=== PATIENT | female | born 1975 | race Caucasian/White ===

== ENCOUNTER 2017-04-01 22:08 | Inpatient (IN) | payer SELFPAY ==
[~2017-04-01] VITALS: Ht 165.1 cm; Wt 75.9 kg
[2017-04-01 22:37] LABS: BASO # 0.1 x10^3/uL (0.0-0.2); BASO % 1 % (0-3); EOS % 1 % (0-3); HEMATOCRIT 38.9 % (36.0-47.0); HEMOGLOBIN 13.6 g/dL (12.0-15.5); LYMPH # 2.6 x10^3/uL (1.0-4.8); LYMPH % 33 % (24-48); MEAN CORPUSCULAR HEMOGLOBIN 34 pg (25-35); MEAN CORPUSCULAR HGB CONC 35 g/dL (31-37); MEAN CORPUSCULAR VOLUME 96 fL (79-100); MONO % 7 % (0-9); NEUT % 59 % (31-73); PLATELET COUNT 261 x10^3/uL (140-400); RED BLOOD COUNT 4.06 x10^6/uL (3.50-5.40); RED CELL DISTRIBUTION WIDTH 12.9 % (11.5-14.5); WHITE BLOOD COUNT 7.9 x10^3/uL (4.0-11.0)
[2017-04-01 22:48] LABS: BILIRUBIN,URINE NEGATIVE (NEG); GLUCOSE,URINE NEGATIVE (NEG); NITRITE,URINE NEGATIVE (NEG); PH,URINE 6.5; PROTEIN,URINE NEGATIVE (NEG-TRACE)
[2017-04-01 22:49] LABS: CALCIUM 9.6 mg/dL (8.5-10.1); CREATININE 0.8 mg/dL (0.6-1.0)
[2017-04-01 22:50] LABS: POTASSIUM 2.4 mmol/L (3.5-5.1)
[2017-04-01 22:53] LABS: BARBITURATES NEG (NEG); BENZODIAZEPINES NEG (NEG); CANNABINOIDS NEG (NEG); COCAINE NEG (NEG); METHADONE NEG (NEG); OPIATES NEG (NEG); PHENCYCLIDINE NEG (NEG)
[2017-04-01 22:55] LABS: BACTERIA,URINE FEW /HPF (0-FEW); RBC,URINE 0 /HPF (0-2); SQUAMOUS EPITHELIAL CELL,UR MOD /LPF
[2017-04-01] MEDS ORDERED: POTASSIUM CHLORIDE 20 MEQ/15 ML ORAL LIQUID. PO ONE (23:30)
[2017-04-01] MEDS ORDERED: ONDANSETRON PF 4 MG/2 ML VIAL. IV PRN ×2 (23:30→23:51)
[2017-04-01] MEDS ORDERED: ACETAMINOPHEN 325 MG TABLET. PO PRN (23:30)
[2017-04-01] MEDS ORDERED: POTASSIUM CL 30MEQ D5-0.45NACL 1,000 ML IV ONE (23:30)
[2017-04-02] MEDS ORDERED: LABETALOL 20 MG/4 ML DISP.SYRIN. IVP PRN
[2017-04-02] MEDS ORDERED: [UNRECOGNIZED DRUG - OTHER] IV ONE ×5
[2017-04-02] MEDS ORDERED: FOLIC ACID IV ONE ×5
[2017-04-02] MEDS ORDERED: NICOTINE 21MG PATCH. TD PRN
[2017-04-02] MEDS ORDERED: MULTIVIT INFUSN ADULT K IV ONE ×5
[2017-04-02] MEDS ORDERED: THIAMINE IV ONE ×5
[2017-04-02] MEDS ORDERED: POTASSIUM CHLORIDE 20 MEQ TABLET.ER. PO ONE (00:15)
--- NOTE | 2017-04-02 00:15 | PDOC1 ---
History and Physical Date of Admission Date of Admission DATE: 04/02/17 TIME: 00:07 Identification/Chief Complaint Chief Complaint abd pain, diarrhea, passed out Problems: Source Source: Caregiver, Chart review, Patient History of Present Illness History of Present Illness 41 y.o female, heavy alcoholic, pint every day,was at [employer] today, riding the water ride and passed out apparently, No injuries, Admitted bec of etoh hx, critical hypokalemia 2.4 and a systolic BP of over 200s. Claims only on 3 meds at home,antidepressant, prilosec and 1 unrecalled med, Claims BP usually runs low. No PCP On ROS, lots of positive like intermittent bloody diarrhea, was supposed to have cscope done but lost interest/lost insurance and is now SP. Claims hx IBS, no weight change, claims hx hematemesis and blood from urine? vagina? buts he is worried bec she has had a hysterrectomy already, Abd pain, no radiation , non concerning, hx 19 lap sxs thru her umbilicus she claims, hungry and wants food, Asks me about liver cirrhosis. Past Medical History GI: Diverticulosis, GERD, GI bleed, Irritable bowel disease, Peptic Ulcer disease, Other (bloody BM) Hepatobiliary: No pertinent hx Psych: No pertinent hx Musculoskeletal: low back pain Rheumatologic: No pertinent hx Infectious disease: No pertinent hx ENT: No pertinent hx Renal/: No pertinent hx Endocrine: No pertinent hx Dermatology: No pertinent hx Past Surgical History Past Surgical History: , Tonsillectomy, Hysterectomy, Other (19 lap sx thru umbilicus) Family History Family History: High Cholestrol, Hypertension Social History Smoke: 1 pack per day ALCOHOL: heavy Drugs: None Current Problem List Problem List Problems Medical Problems: (1) Hypokalemia Status: Acute Problems: Current Medications Current Medications Current Medications Potassium Chloride (KCl Oral Soln) 40 meq 1X ONCE PO Last administered on 04/01t 23:16; Start 04/01/17 at 23:30; Stop 04/01/17 at 23:31; Status DC Potassium Chloride/Dextrose/ Sod Cl 1,000 ml @ 75 mls/hr 1X ONCE IV ; Start at 23:30; Stop 04/02/17 at 12:49; Status Cancel Multivitamins 10 ml/Folic Acid 1 mg/Thiamine HCl 100 mg/Potassium Chloride 40 meq/ Dextrose/Sodium Chloride 1,031.2 ml @ 125 mls/ hr 1X ONCE IV Last administered on 04/01/17t 23:34; Start 04/02/17 at 00:00; Stop 04/02/17 at 08:14 Ondansetron HCl (Zofran) 4 mg PRN Q8HRS PRN IV NAUSEA/VOMITING; Start 04/01/17 at 23:30; Stop 04/01/17 at 23:53; Status DC Acetaminophen (Tylenol) 650 mg PRN Q4HRS PRN PO FEVER; Start 04/01/17 at 23:30 ; Stop 04/02/17 at 23:29 Multivitamins 10 ml/Thiamine HCl 100 mg/Folic Acid 1 mg/Sodium Chloride 1,011.2 ml @ 100 mls/ hr DAILY IV ; Start 04/02/17 at 09:00; Stop 04/07/17 at 08:59 Chlordiazepoxide (Librium) 25 mg Q6H PO ; Start 04/02/17 at 00:00; Stop at 06:01 Ondansetron HCl (Zofran) 4 mg PRN Q6HRS PRN IV NAUSEA/VOMITING; Start 04/01/17 at 23:51 Potassium Chloride (Klor-Con) 40 meq 1X ONCE PO ; Start 04/02/17 at 00:15; Stop 04/02/17 at 00:16 Labetalol HCl (Normodyne) 10 mg PRN Q2HR PRN IVP 160/100; Start 04/02/17 at 00: 00 Allergies Allergies: Coded Allergies: Penicillins (Verified Allergy, Intermediate, 04/01/17) codeine (Verified Allergy, Intermediate, 04/01/17) propoxyphene (Verified Allergy, Intermediate, 04/01/17) ROS General: No: Chills, Night Sweats, Fatigue, Malaise, Appetite, Other PSYCHOLOGICAL ROS: YES: Depression Eyes: No Blurry vision, No Decreased vision, No Double vision, No Dry eyes, No Excessive tearing, No Eye Pain, No Itchy Eyes, No Loss of vision, No Photophobia , No Scotomata, No Uses contacts, No Uses glasses, No Other HEENT: No: Heacaches, Visual Changes, Hearing change, Nasal congestion, Nasal discharge, Oral lesions, Sinus pain, Sore Throat, Epistaxis, Sneezing, Snoring, Tinnitus, Vertigo, Vocal changes, Other ALLERGY AND IMMUNOLOGY: No: Hives, Insect Bite Sensitivity, Itchy/Watery Eyes, Nasal Congestion, Post Nasal Drip, Seasonal Allergies, Other Hematological and Lymphatic: YES: Bleeding Problems, No: Blood Clots, Blood Transfusions, Brusing, Night Sweats, Pallor, Swollen Lymph Nodes, Other Breast: No New/Changing Breast Lumps, No Nipple changes, No Nipple discharge, No Other Respiratory: No: Cough, Hemoptysis, Orthopnea, Pleuritic Pain, Shortness of breath, SOB with excertion, Sputum Changes, Stridor, Tachypnea, Wheezing, Other Cardiovascular: No Chest Pain, No Palpitations, No Orthopnea, No Paroxysmal Noc. Dyspnea, No Edema, No Lt Headedness, No Other Gastrointestinal: Yes Nausea, Yes Vomiting, Yes Abdominal Pain, Yes Diarrhea, Yes Hematochezia, Yes Other (hematemesis) Genitourinary: YES Hematuria, YES Other Musculoskeletal: No Gait Disturbance, No Joint Pain, No Joint Stiffness, No Joint Swelling, No Muscle Pain, No Muscular Weakness, No Pain In:, No Swelling In:, No Other Neurological: No Behavorial Changes, No Bowel/Bladder ControlChng, No Confusion , No Dizziness, No Gait Disturbance, No Headaches, No Impaired Coord/balance, No Memory Loss, No Numbness/Tingling, No Seizures, No Speech Problems, No Tremors, No Visual Changes, No Weakness, No Other Skin: No Dry Skin, No Eczema, No Hair Changes, No Lumps, No Mole Changes, No Mottling, No Nail Changes, No Pruritus, No Rash, No Skin Lesion Changes, No Other, No Acne Physical Exam General: Alert, Oriented X3, Cooperative, No acute distress HEENT: Atraumatic, PERRLA, EOMI Lungs: Clear to auscultation, Normal air movement Heart: S1S2, RRR, no thrills, no rubs, no gallops Cardiovascular: S1, S2 Breasts: Normal, Rt breast nml w/o mass, Lt breast nml w/o mass, Nipples normal Abdomen: Normal bowel sounds, Soft, No tenderness, No hepatosplenomegaly, No masses Rectal Exam: not examined PELVIC: Nml ext genitalia Extremities: No clubbing, No cyanosis, No edema, Normal pulses, No tenderness/ swelling Skin: No rashes, No breakdown, No significant lesion Neuro: Normal gait, Normal speech, Strength at 5/5 X4 ext, Normal tone, Sensation intact, Cranial nerves 3-12 NL, Reflexes 2+ Psych/Mental Status: Mental status NL, Mood NL Vitals Vitals Vital Signs Date Time Temp Pulse Resp B/P (MAP) Pulse Ox O2 Delivery O2 Flow Rate FiO2 04/01/17 23:36 80 22 194/93 (126) 100 04/01/17 23:31 Room Air 04/01/17 22:08 97.5 97.5 Labs Labs Laboratory Tests Test 04/01/17 22:23 04/01/17 22:41 White Blood Count 7.9 x10^3/uL (4.0-11.0) Red Blood Count 4.06 x10^6/uL (3.50-5.40) Hemoglobin 13.6 g/dL (12.0-15.5) Hematocrit 38.9 % (36.0-47.0) Mean Corpuscular Volume 96 fL (79-100) Mean Corpuscular Hemoglobin 34 pg (25-35) Mean Corpuscular Hemoglobin Concent 35 g/dL (31-37) Red Cell Distribution Width 12.9 % (11.5-14.5) Platelet Count 261 x10^3/uL (140-400) Neutrophils (%) (Auto) 59 % (31-73) Lymphocytes (%) (Auto) 33 % (24-48) Monocytes (%) (Auto) 7 % (0-9) Eosinophils (%) (Auto) 1 % (0-3) Basophils (%) (Auto) 1 % (0-3) Neutrophils # (Auto) 4.6 x10^3uL (1.8-7.7) Lymphocytes # (Auto) 2.6 x10^3/uL (1.0-4.8) Monocytes # (Auto) 0.6 x10^3/uL (0.0-1.1) Eosinophils # (Auto) 0.1 x10^3/uL (0.0-0.7) Basophils # (Auto) 0.1 x10^3/uL (0.0-0.2) Sodium Level 143 mmol/L (136-145) Potassium Level 2.4 mmol/L (3.5-5.1) Chloride Level 103 mmol/L (98-107) Carbon Dioxide Level 28 mmol/L (21-32) Anion Gap 12 (6-14) Blood Urea Nitrogen 15 mg/dL (7-20) Creatinine 0.8 mg/dL (0.6-1.0) Estimated GFR (Cockcroft-Gault) 79.0 Glucose Level 128 mg/dL (70-99) Calcium Level 9.6 mg/dL (8.5-10.1) Magnesium Level 1.8 mg/dL (1.8-2.4) Ethyl Alcohol Level < 10 mg/dL (0-10) Urine Collection Type Unknown Urine Color Estefanía Urine Clarity Clear Urine pH 6.5 Urine Specific [place] 1.025 Urine Protein Negative mg/dL (NEG-TRACE) Urine Glucose (UA) Negative mg/dL (NEG) Urine Ketones (Stick) 15 mg/dL (NEG) Urine Blood Negative (NEG) Urine Nitrite Negative (NEG) Urine Bilirubin Negative (NEG) Urine Urobilinogen Dipstick 1.0 mg/dL (0.2 mg/dL) Urine Leukocyte Esterase Small (NEG) Urine RBC 0 /HPF (0-2) Urine WBC 5-10 /HPF (0-4) Urine Squamous Epithelial Cells Mod /LPF Urine Amorphous Sediment Present /HPF Urine Bacteria Few /HPF (0-FEW) Urine Mucus Mod /LPF Urine Opiates Screen Neg (NEG) Urine Methadone Screen Neg (NEG) Urine Barbiturates Neg (NEG) Urine Phencyclidine Screen Neg (NEG) Urine Amphetamine/Methamphetamine Pos (NEG) Urine Benzodiazepines Screen Neg (NEG) Urine Cocaine Screen Neg (NEG) Urine Cannabinoids Screen Neg (NEG) Urine Ethyl Alcohol Pos (NEG) Laboratory Tests Test 04/01/17 22:23 04/01/17 22:41 White Blood Count 7.9 x10^3/uL (4.0-11.0) Red Blood Count 4.06 x10^6/uL (3.50-5.40) Hemoglobin 13.6 g/dL (12.0-15.5) Hematocrit 38.9 % (36.0-47.0) Mean Corpuscular Volume 96 fL (79-100) Mean Corpuscular Hemoglobin 34 pg (25-35) Mean Corpuscular Hemoglobin Concent 35 g/dL (31-37) Red Cell Distribution Width 12.9 % (11.5-14.5) Platelet Count 261 x10^3/uL (140-400) Neutrophils (%) (Auto) 59 % (31-73) Lymphocytes (%) (Auto) 33 % (24-48) Monocytes (%) (Auto) 7 % (0-9) Eosinophils (%) (Auto) 1 % (0-3) Basophils (%) (Auto) 1 % (0-3) Neutrophils # (Auto) 4.6 x10^3uL (1.8-7.7) Lymphocytes # (Auto) 2.6 x10^3/uL (1.0-4.8) Monocytes # (Auto) 0.6 x10^3/uL (0.0-1.1) Eosinophils # (Auto) 0.1 x10^3/uL (0.0-0.7) Basophils # (Auto) 0.1 x10^3/uL (0.0-0.2) Sodium Level 143 mmol/L (136-145) Potassium Level 2.4 mmol/L (3.5-5.1) Chloride Level 103 mmol/L (98-107) Carbon Dioxide Level 28 mmol/L (21-32) Anion Gap 12 (6-14) Blood Urea Nitrogen 15 mg/dL (7-20) Creatinine 0.8 mg/dL (0.6-1.0) Estimated GFR (Cockcroft-Gault) 79.0 Glucose Level 128 mg/dL (70-99) Calcium Level 9.6 mg/dL (8.5-10.1) Magnesium Level 1.8 mg/dL (1.8-2.4) Ethyl Alcohol Level < 10 mg/dL (0-10) Urine Collection Type Unknown Urine Color Estefanía Urine Clarity Clear Urine pH 6.5 Urine Specific [place] 1.025 Urine Protein Negative mg/dL (NEG-TRACE) Urine Glucose (UA) Negative mg/dL (NEG) Urine Ketones (Stick) 15 mg/dL (NEG) Urine Blood Negative (NEG) Urine Nitrite Negative (NEG) Urine Bilirubin Negative (NEG) Urine Urobilinogen Dipstick 1.0 mg/dL (0.2 mg/dL) Urine Leukocyte Esterase Small (NEG) Urine RBC 0 /HPF (0-2) Urine WBC 5-10 /HPF (0-4) Urine Squamous Epithelial Cells Mod /LPF Urine Amorphous Sediment Present /HPF Urine Bacteria Few /HPF (0-FEW) Urine Mucus Mod /LPF Urine Opiates Screen Neg (NEG) Urine Methadone Screen Neg (NEG) Urine Barbiturates Neg (NEG) Urine Phencyclidine Screen Neg (NEG) Urine Amphetamine/Methamphetamine Pos (NEG) Urine Benzodiazepines Screen Neg (NEG) Urine Cocaine Screen Neg (NEG) Urine Cannabinoids Screen Neg (NEG) Urine Ethyl Alcohol Pos (NEG) VTE Prophylaxis Ordered VTE Prophylaxis Devices: Contraindicated VTE Pharmacological Prophylaxi: Contraindicated Assessment/Plan Assessment/Plan 1. Critical hypokalemia from GI loss 2. Diarrhea with episodes of bloody BM - staretd weeks ago, intermitten 3. Hx IBS per patient 4. Hematemesis hx in this alcoholic 5. HEavy etoh drinker 6. MAlignant HTN POA - SBP 200s 7. Depression NOS 8. GERD 9,. Hx diverticulosis PLAn: Admit 2 mN Labetolol prn NEed to lower BP in 24 hrs GI consult GEt ESR Stool for blood and specimen to lab Imodium prn Resume home meds PPI Banana bag CIWA REplace K - recheck K kelsey Check mag Ok for pO diet Counselled on her drinking Seen at ER level Dw ER NO need for PT, gait seems to be steady Can consult SW for AAA referral TASNEEM VILCHIS MD Apr 02, 2017 00:15
[2017-04-02] MEDS: chlordiazePOXIDE HCL 25 MG CAPSULE PO SCH ×4 (00:17→17:06)
--- NOTE | 2017-04-02 00:29 | ACF ---
Admission Forms Criteria HYPONATREMIA; HYPERNATREMIA; HYPOKALEMIA; HYPERKALEMIA; HYPOCALCEMIA; HYPERCALCEMIA Clinical Indications for Inpatient Care (Place 'X' for any and all applicable criteria): Ongoing inpatient care may be indicated for ANY ONE of the following [G](1)(2)(3 )(5): [ ]I. Hyponatremia with ANY ONE of the following: [ ]a) Sodium less than 130 mEq/L (mmol/L) (new) (6)(22) [ ]b) Sodium less than 135 mEq/L (mmol/L) with ANY ONE of the following: [ ]i) Severe medical etiology requiring inpatient management (eg, heart failure, hypovolemia) [ ]ii) Altered mental status [ ]iii) Seizures [ ]II. Hypernatremia with ANY ONE of the following: [ ]a) Sodium greater than 155 mEq/L (mmol/L) [ ]b) Sodium greater than 150 mEq/L (mmol/L) with ANY ONE of the following: [ ] i) Altered mental status [ ]ii) Seizures [ ]iii) Severe medical etiology (eg, hypovolemia, diabetes insipidus) [ ]iv) Severe weakness [ ]v) Severe medical etiology (eg, hemolysis, infection, drug overdose) [X]III. Hypokalemia with ANY ONE of the following: [X]a) Potassium less than 2.5 mEq/L (mmol/L) despite outpatient and emergency treatment [ ]b) Potassium less than 3.0 mEq/L (mmol/L) with ANY ONE of the following: [ ]i) Weakness [ ]ii) Cardiac abnormality (eg, arrhythmia, conduction disturbance) [ ]iii) Cardiac ischemia [ ]iv) Ileus [ ]v) Ongoing medical cause requiring inpatient management. ( e.g., acute renal wasting, SIADH) [ ]vi) Other severe symptoms [ ] IV. Hyperkalemia with ANY ONE of the following: [ ]a) Potassium greater than 6.5 mEq/L (mmol/L) [ ]b) Potassium greater than 5 mEq/L (mmol/L) with ANY ONE of the following: [ ]i) Severe ECG findings [H] [ ]ii) Acute worsening of renal failure (creatinine greater than 2.5 mg/dL (221 micromoles/L) or significant elevation for age and size) [ ] V. Hypocalcemia with ANY ONE of the following: [ ]a) Calcium less than 7 mg/dL (1.75 mmol/L) despite outpatient and emergency treatment(19) [ ]b) Calcium less than 8 mg/dL (2 mmol/L) with significant symptoms or findings; examples include: [ ]i) Cardiac abnormality (eg, arrhythmia or conduction disturbance) [ ]ii) Altered mental status [ ]iii) Seizures [ ]iv) Breathing difficulty [ ]v) Muscle spasms [ ]. Hypercalcemia with ANY ONE of the following: [ ]a) Calcium greater than 14 mg/dL (3.5 mmol/L) [ ]b) Calcium greater than 12 mg/dL (3 mmol/L) with ANY ONE of the following: [ ]i) Significant dehydration or hypovolemia as indicated by ANY ONE of the following(2): [ ]1. Clinically significant dehydration as indicated by ANY ONE of the following: [ ]A. Acute loss of weight from baseline (5% of body weight in adults, 9% in pediatric patients) [ ]B. Hemodynamic instability [ ]C. Acute renal failure [ ]D. Serum sodium greater than 150 mEq/L (mmol/L) [ ]2) Dehydration that is persistent indicated by ALL of the following: [ ]A. Oral rehydration therapy not tolerated or insufficient to adequately correct dehydration [ ]B. Appropriate intravenous treatment (eg, fluids ) does not readily correct dehydration ie, after 12 to 24 hours of treatment) [ ]ii) Significant symptoms or findings; examples include: [ ]1) Altered mental status [ ]2) Cardiac abnormality (eg, arrhythmia, conduction disturbance) [ ]3) Cardiac abnormality (eg, arrhythmia, conduction disturbance) The original [facility] content created by [facility] has been revised. The portions of the content which have been revised are identified through the use of italic text or in bold, and [facility] has neither reviewed nor approved the modified material. All other unmodified content is copyright [facility] [employer] Please see references footnoted in the original [facility] [employer] edition 2016 Admission Criteria Met?: Yes [place] Apr 02, 2017 00:29
[2017-04-02 01:20] VITALS: BP 126/73
[2017-04-02] MEDS ORDERED: IBUP-1027 PO (01:37)
[2017-04-02] MEDS ORDERED: OMEP20TA63 PO (01:37)
[2017-04-02] MEDS ORDERED: PARO20TA99 PO (01:37)
[2017-04-02] MEDS ORDERED: IBUPROFEN 400 MG TABLET. PO PRN (01:45)
[2017-04-02] MEDS ORDERED: PANTOPRAZOLE 40 MG TABLET.DR. PO ONE (02:00)
--- NOTE | 2017-04-02 02:44 | ED.ADGEN ---
Past Medical History Past Medical History: Diverticulosis, Seizure Additional Past Medical Histor: H PYLORI, EARLY DEMENTIA, Past Surgical History: Hysterectomy, Tonsillectomy Additional Past Surgical Histo: FEMUR Alcohol Use: Heavy Additional Information: 1/2 TO 1 PINT DAILY Drug Use: Methamphetamine Adult General Chief Complaint Chief Complaint: NAUSEA/VOMITING/DIARRHA HPI HPI Patient is a 41 year old woman, history of diverticulosis, "early dementia", who drinks a half pint to a pint of whiskey daily, who presents emergency Department with complaint of syncope. Patient states that she was riding on "swinging boat ride", at well[place]defined when she had an episode of syncope. Patient's boyfriend was present during the ride, states that the patient passed out while they were seen in the air, had be cared of the ride. She woke shortly after this occurred, and had one episode of emesis. Patient states that she was feeling weak during the day. Denies any injuries, states he did not drink anything today, denies any drugs, does smoke cigarettes daily. She denies any headache, any vision changes, any focal weakness, numbness or tingling. She feels weak all over, and lightheaded. She states she's been experiencing "loose oily stool", for the past several days. No sick contacts or exposures. No abdominal pain. No swelling extremities, recent travel or surgery, no rashes. Patient states that she has a history of hypokalemia, for which she was prescribed supplemental patent potassium, but has not been taking pills since her insurance ran out several months ago. Review of Systems Review of Systems Constitutional: Denies fever or chills. [] Eyes: Denies change in visual acuity. [] HENT: Denies nasal congestion or sore throat. [] Respiratory: Denies cough or shortness of breath. [] Cardiovascular: Denies chest pain or edema. [] GI: Denies abdominal pain, nausea, vomiting, bloody stools or diarrhea. [] : Denies dysuria. [] Musculoskeletal: Denies back pain or joint pain. [] Integument: Denies rash. [] Neurologic: Denies headache, focal weakness or sensory changes. [] Endocrine: Denies polyuria or polydipsia. [] Lymphatic: Denies swollen glands. [] Psychiatric: Denies depression or anxiety. [] Allergies Allergies Allergies Coded Allergies Type Severity Reaction Last Updated Verified Penicillins Allergy Intermediate 04/01/17 Yes codeine Allergy Intermediate 04/01/17 Yes propoxyphene Allergy Intermediate 04/01/17 Yes Physical Exam Physical Exam Constitutional: Well developed, well nourished, no acute distress, non-toxic appearance. [] HENT: Normocephalic, atraumatic, bilateral external ears normal, oropharynx moist, no oral exudates, nose normal. [] Eyes: PERRLA, EOMI, conjunctiva normal, no discharge. [] Neck: Normal range of motion, no tenderness, supple, no stridor. [] Cardiovascular:Heart rate regular rhythm, no murmur [] Lungs & Thorax: Bilateral breath sounds clear to auscultation [] Abdomen: Bowel sounds normal, soft, no tenderness, no masses, no pulsatile masses. [] Skin: Warm, dry, no erythema, no rash. [] Back: No tenderness, no CVA tenderness. [] Extremities: No tenderness, no cyanosis, no clubbing, ROM intact, no edema. [] Neurologic: Alert and oriented X 3, normal motor function, normal sensory function, no focal deficits noted. [] Psychologic: Affect normal, judgement normal, mood normal. [] Current Patient Data Vital Signs Vital Signs Date Time Temp Pulse Resp B/P (MAP) Pulse Ox O2 Delivery O2 Flow Rate FiO2 04/01/17 22:45 86 20 207/110 (142) 98 Room Air 04/01/17 22:08 97.5 97.5 Lab Values Laboratory Tests Test 04/01/17 22:23 04/01/17 22:41 White Blood Count 7.9 x10^3/uL (4.0-11.0) Red Blood Count 4.06 x10^6/uL (3.50-5.40) Hemoglobin 13.6 g/dL (12.0-15.5) Hematocrit 38.9 % (36.0-47.0) Mean Corpuscular Volume 96 fL (79-100) Mean Corpuscular Hemoglobin 34 pg (25-35) Mean Corpuscular Hemoglobin Concent 35 g/dL (31-37) Red Cell Distribution Width 12.9 % (11.5-14.5) Platelet Count 261 x10^3/uL (140-400) Neutrophils (%) (Auto) 59 % (31-73) Lymphocytes (%) (Auto) 33 % (24-48) Monocytes (%) (Auto) 7 % (0-9) Eosinophils (%) (Auto) 1 % (0-3) Basophils (%) (Auto) 1 % (0-3) Neutrophils # (Auto) 4.6 x10^3uL (1.8-7.7) Lymphocytes # (Auto) 2.6 x10^3/uL (1.0-4.8) Monocytes # (Auto) 0.6 x10^3/uL (0.0-1.1) Eosinophils # (Auto) 0.1 x10^3/uL (0.0-0.7) Basophils # (Auto) 0.1 x10^3/uL (0.0-0.2) Sodium Level 143 mmol/L (136-145) Potassium Level 2.4 mmol/L (3.5-5.1) *L Chloride Level 103 mmol/L (98-107) Carbon Dioxide Level 28 mmol/L (21-32) Anion Gap 12 (6-14) Blood Urea Nitrogen 15 mg/dL (7-20) Creatinine 0.8 mg/dL (0.6-1.0) Estimated GFR (Cockcroft-Gault) 79.0 Glucose Level 128 mg/dL (70-99) H Calcium Level 9.6 mg/dL (8.5-10.1) Magnesium Level 1.8 mg/dL (1.8-2.4) Ethyl Alcohol Level < 10 mg/dL (0-10) Urine Collection Type Unknown Urine Color Estefanía Urine Clarity Clear Urine pH 6.5 Urine Specific [place] 1.025 Urine Protein Negative mg/dL (NEG-TRACE) Urine Glucose (UA) Negative mg/dL (NEG) Urine Ketones (Stick) 15 mg/dL (NEG) Urine Blood Negative (NEG) Urine Nitrite Negative (NEG) Urine Bilirubin Negative (NEG) Urine Urobilinogen Dipstick 1.0 mg/dL (0.2 mg/dL) Urine Leukocyte Esterase Small (NEG) Urine RBC 0 /HPF (0-2) Urine WBC 5-10 /HPF (0-4) Urine Squamous Epithelial Cells Mod /LPF Urine Amorphous Sediment Present /HPF Urine Bacteria Few /HPF (0-FEW) Urine Mucus Mod /LPF Urine Opiates Screen Neg (NEG) Urine Methadone Screen Neg (NEG) Urine Barbiturates Neg (NEG) Urine Phencyclidine Screen Neg (NEG) Urine Amphetamine/Methamphetamine Pos (NEG) Urine Benzodiazepines Screen Neg (NEG) Urine Cocaine Screen Neg (NEG) Urine Cannabinoids Screen Neg (NEG) Urine Ethyl Alcohol Pos (NEG) Laboratory Tests 04/01/17 22:23 Laboratory Tests 04/01/17 22:23 EKG EKG EC: Sinus rhythm, heart rate 65 beats minute, upright axis, QTC of 522, prolonged, MA of 172, QRS of 75, no ST elevations or depressions, noted to the acute ST T abnormalities. Aside from QT prolongation, no other abnormality is identified. As interpreted by me. Radiology/Procedures Radiology/Procedures Not indicated. [] Course & Med Decision Making Course & Med Decision Making Pertinent Labs and Imaging studies reviewed. (See chart for details) Patient with stable vital signs in the emergency department, continues to feel shaky with standing and ambulation in the ED. Potassium noted to be 2.4 in the emergency department. I did discuss with the patient, states she has a history and has not been taking her supplementation. Patient also with alcohol abuse, all she denies any history of withdrawal type symptoms, states that she has not had a drink since yesterday, and is noted to have an alcohol level less than 10. No further vomiting syncope in the ED. No concerning source for syncope identified, as patient was an amusement ride, this is likely a positional episode of syncope, exacerbated by the patient's hypokalemia. Patient is agreeable for admission to hospital for treatment with oral and IV repletion and monitoring of potassium levels. Initiated with 4 mEq of potassium administered orally in the ED without issue, banana bag with 40 mEq of potassium initiated as well. Will be infused over 8 hours. Patient also initiated alcohol withdrawal protocol. Findings as above discussed with Dr. Jimenez of internal medicine, patient accepted to her service as a full admission with bridge orders entered per discussion. Dragon Disclaimer Dragon Disclaimer This electronic medical record was generated, in whole or in part, using a voice recognition dictation system. Departure Impression: Primary Impression: Hypokalemia Additional Impression: Syncope Disposition: 09 ADMITTED INPATIENT Admitting Physician: April Jimenez Condition: IMPROVED Problem Qualifiers TALA HARDY DO Apr 02, 2017 02:44
[2017-04-02] MEDS ORDERED: PNEUMOCOCCAL VAX SCREEN BY RX. MC ONE (02:45)
[2017-04-02 06:13] LABS: BASO # 0.1 x10^3/uL (0.0-0.2); BASO % 1 % (0-3); EOS % 1 % (0-3); HEMATOCRIT 38.6 % (36.0-47.0); HEMOGLOBIN 13.5 g/dL (12.0-15.5); LYMPH # 2.5 x10^3/uL (1.0-4.8); LYMPH % 33 % (24-48); MEAN CORPUSCULAR HEMOGLOBIN 33 pg (25-35); MEAN CORPUSCULAR HGB CONC 35 g/dL (31-37); MEAN CORPUSCULAR VOLUME 96 fL (79-100); MONO % 9 % (0-9); NEUT % 57 % (31-73); PLATELET COUNT 267 x10^3/uL (140-400); RED BLOOD COUNT 4.04 x10^6/uL (3.50-5.40); RED CELL DISTRIBUTION WIDTH 12.9 % (11.5-14.5); WHITE BLOOD COUNT 7.7 x10^3/uL (4.0-11.0)
[2017-04-02 06:38] LABS: CALCIUM 9.5 mg/dL (8.5-10.1); CREATININE 0.8 mg/dL (0.6-1.0)
[2017-04-02 06:51] LABS: DIRECT BILIRUBIN 0.2 mg/dL (0.0-0.2); TOTAL BILIRUBIN 0.5 mg/dL (0.2-1.0)
[2017-04-02 07:27] VITALS: BP 109/60
[2017-04-02] MEDS ORDERED: PANTOPRAZOLE 40 MG TABLET.DR. PO SCH ×2 (07:30→21:00)
[2017-04-02] MEDS ORDERED: MULTIVIT INFUSN,ADULT 4,VIT K 10 ML, THIAMINE 100 MG, FOLIC ACID 1 MG in IV NORMAL SALI... IV SCH (09:00)
[2017-04-02] MEDS ORDERED: PNEUMOC CONJ VACC 23-VALENT 0.5 ML VIAL. VAX IM ONE (09:00)
[2017-04-02] MEDS ORDERED: NON FORMULARY ITEM (Omeprazole Magnesium (Prilosec Otc) 20 MG) PO SCH (09:00)
[2017-04-02 11:25] VITALS: BP 105/51
--- NOTE | 2017-04-02 12:16 | EKG ---
[facility] [address] [place] [id number] Test Date: 2017-04-01 Test Time: 22:42:16 Pat Name: ELENA STEVENSON Department: Room: Gender: F Working Foreman: : 1975 Requested By: TALA HARDY Order Number: [id number] Reading MD: Measurements Intervals Kimberly Rate: 65 P: 51 NH: 172 QRS: 48 QRSD: 76 T: 42 QT: 496 QTc: 522 Interpretive Statements SINUS RHYTHM QRS(T) CONTOUR ABNORMALITY CONSIDER ANTEROLATERAL MYOCARDIAL DAMAGE PROLONGED QT POSSIBLY ABNORMAL ECG RI6.01 No previous ECG available for comparison
--- NOTE | 2017-04-02 13:50 | PDOC ---
PROGRESS NOTES Chief Complaint Chief Complaint 1. Critical hypokalemia from GI loss 2. Diarrhea with episodes of bloody BM 4. Hematemesis hx in this alcoholic 5. Heavy ETOH 6. Mallignant HTN 7. Depression 8. GERD 9,. Hx diverticulosis History of Present Illness History of Present Illness Pt seen and examined VSS JAYDON RN Vitals Vitals Vital Signs Date Time Temp Pulse Resp B/P (MAP) Pulse Ox O2 Delivery O2 Flow Rate FiO2 04/02/17 11:25 97.5 79 18 105/51 (69) 96 Room Air 97.5 Physical Exam General: Alert, Oriented X3, Cooperative, No acute distress Heart: Regular rate, Normal S1 Lungs: Clear Abdomen: Normal bowel sounds, Soft, No tenderness, No hepatosplenomegaly, No masses Extremities: No clubbing, No cyanosis, No edema, Normal pulses, No tenderness/ swelling Skin: No rashes, No breakdown, No significant lesion Labs LABS Laboratory Tests Test 04/01/17 22:23 04/01/17 22:41 04/02/17 05:30 White Blood Count 7.9 x10^3/uL (4.0-11.0) 7.7 x10^3/uL (4.0-11.0) Red Blood Count 4.06 x10^6/uL (3.50-5.40) 4.04 x10^6/uL (3.50-5.40) Hemoglobin 13.6 g/dL (12.0-15.5) 13.5 g/dL (12.0-15.5) Hematocrit 38.9 % (36.0-47.0) 38.6 % (36.0-47.0) Mean Corpuscular Volume 96 fL (79-100) 96 fL (79-100) Mean Corpuscular Hemoglobin 34 pg (25-35) 33 pg (25-35) Mean Corpuscular Hemoglobin Concent 35 g/dL (31-37) 35 g/dL (31-37) Red Cell Distribution Width 12.9 % (11.5-14.5) 12.9 % (11.5-14.5) Platelet Count 261 x10^3/uL (140-400) 267 x10^3/uL (140-400) Neutrophils (%) (Auto) 59 % (31-73) 57 % (31-73) Lymphocytes (%) (Auto) 33 % (24-48) 33 % (24-48) Monocytes (%) (Auto) 7 % (0-9) 9 % (0-9) Eosinophils (%) (Auto) 1 % (0-3) 1 % (0-3) Basophils (%) (Auto) 1 % (0-3) 1 % (0-3) Neutrophils # (Auto) 4.6 x10^3uL (1.8-7.7) 4.4 x10^3uL (1.8-7.7) Lymphocytes # (Auto) 2.6 x10^3/uL (1.0-4.8) 2.5 x10^3/uL (1.0-4.8) Monocytes # (Auto) 0.6 x10^3/uL (0.0-1.1) 0.7 x10^3/uL (0.0-1.1) Eosinophils # (Auto) 0.1 x10^3/uL (0.0-0.7) 0.1 x10^3/uL (0.0-0.7) Basophils # (Auto) 0.1 x10^3/uL (0.0-0.2) 0.1 x10^3/uL (0.0-0.2) Sodium Level 143 mmol/L (136-145) 142 mmol/L (136-145) Potassium Level 2.4 mmol/L (3.5-5.1) 4.0 mmol/L (3.5-5.1) Chloride Level 103 mmol/L (98-107) 106 mmol/L (98-107) Carbon Dioxide Level 28 mmol/L (21-32) 27 mmol/L (21-32) Anion Gap 12 (6-14) 9 (6-14) Blood Urea Nitrogen 15 mg/dL (7-20) 14 mg/dL (7-20) Creatinine 0.8 mg/dL (0.6-1.0) 0.8 mg/dL (0.6-1.0) Estimated GFR (Cockcroft-Gault) 79.0 79.0 Glucose Level 128 mg/dL (70-99) 103 mg/dL (70-99) Calcium Level 9.6 mg/dL (8.5-10.1) 9.5 mg/dL (8.5-10.1) Magnesium Level 1.8 mg/dL (1.8-2.4) Ethyl Alcohol Level < 10 mg/dL (0-10) Urine Collection Type Unknown Urine Color Estefanía Urine Clarity Clear Urine pH 6.5 Urine Specific [place] 1.025 Urine Protein Negative mg/dL (NEG-TRACE) Urine Glucose (UA) Negative mg/dL (NEG) Urine Ketones (Stick) 15 mg/dL (NEG) Urine Blood Negative (NEG) Urine Nitrite Negative (NEG) Urine Bilirubin Negative (NEG) Urine Urobilinogen Dipstick 1.0 mg/dL (0.2 mg/dL) Urine Leukocyte Esterase Small (NEG) Urine RBC 0 /HPF (0-2) Urine WBC 5-10 /HPF (0-4) Urine Squamous Epithelial Cells Mod /LPF Urine Amorphous Sediment Present /HPF Urine Bacteria Few /HPF (0-FEW) Urine Mucus Mod /LPF Urine Opiates Screen Neg (NEG) Urine Methadone Screen Neg (NEG) Urine Barbiturates Neg (NEG) Urine Phencyclidine Screen Neg (NEG) Urine Amphetamine/Methamphetamine Pos (NEG) Urine Benzodiazepines Screen Neg (NEG) Urine Cocaine Screen Neg (NEG) Urine Cannabinoids Screen Neg (NEG) Urine Ethyl Alcohol Pos (NEG) Total Bilirubin 0.5 mg/dL (0.2-1.0) Direct Bilirubin 0.2 mg/dL (0.0-0.2) Aspartate Amino Transf (AST/SGOT) 24 U/L (15-37) Alanine Aminotransferase (ALT/SGPT) 39 U/L (14-59) Alkaline Phosphatase 121 U/L (46-116) Total Protein 7.0 g/dL (6.4-8.2) Albumin 4.0 g/dL (3.4-5.0) Review of Systems Review of Systems co weakness co hunger Assessment and Plan Assessmemt and Plan Problems Medical Problems: (1) Hypokalemia Status: Acute (2) Syncope Status: Acute 1. Critical hypokalemia from GI loss 2. Diarrhea with episodes of bloody BM 4. Hematemesis hx in this alcoholic 5. Heavy ETOH 6. Mallignant HTN 7. Depression 8. GERD 9,. Hx diverticulosis Plan GI consult Stool for blood and specimen to lab Imodium prn Resume home meds PPI Banana bag Replace K+ Counselled on her drinking Home meds No ETOH Problems: Comment Review of Relevant I have reviewed the following items idalmis (where applicable) has been applied. Labs Laboratory Tests Test 04/01/17 22:23 04/01/17 22:41 04/02/17 05:30 White Blood Count 7.9 x10^3/uL (4.0-11.0) 7.7 x10^3/uL (4.0-11.0) Red Blood Count 4.06 x10^6/uL (3.50-5.40) 4.04 x10^6/uL (3.50-5.40) Hemoglobin 13.6 g/dL (12.0-15.5) 13.5 g/dL (12.0-15.5) Hematocrit 38.9 % (36.0-47.0) 38.6 % (36.0-47.0) Mean Corpuscular Volume 96 fL (79-100) 96 fL (79-100) Mean Corpuscular Hemoglobin 34 pg (25-35) 33 pg (25-35) Mean Corpuscular Hemoglobin Concent 35 g/dL (31-37) 35 g/dL (31-37) Red Cell Distribution Width 12.9 % (11.5-14.5) 12.9 % (11.5-14.5) Platelet Count 261 x10^3/uL (140-400) 267 x10^3/uL (140-400) Neutrophils (%) (Auto) 59 % (31-73) 57 % (31-73) Lymphocytes (%) (Auto) 33 % (24-48) 33 % (24-48) Monocytes (%) (Auto) 7 % (0-9) 9 % (0-9) Eosinophils (%) (Auto) 1 % (0-3) 1 % (0-3) Basophils (%) (Auto) 1 % (0-3) 1 % (0-3) Neutrophils # (Auto) 4.6 x10^3uL (1.8-7.7) 4.4 x10^3uL (1.8-7.7) Lymphocytes # (Auto) 2.6 x10^3/uL (1.0-4.8) 2.5 x10^3/uL (1.0-4.8) Monocytes # (Auto) 0.6 x10^3/uL (0.0-1.1) 0.7 x10^3/uL (0.0-1.1) Eosinophils # (Auto) 0.1 x10^3/uL (0.0-0.7) 0.1 x10^3/uL (0.0-0.7) Basophils # (Auto) 0.1 x10^3/uL (0.0-0.2) 0.1 x10^3/uL (0.0-0.2) Sodium Level 143 mmol/L (136-145) 142 mmol/L (136-145) Potassium Level 2.4 mmol/L (3.5-5.1) 4.0 mmol/L (3.5-5.1) Chloride Level 103 mmol/L (98-107) 106 mmol/L (98-107) Carbon Dioxide Level 28 mmol/L (21-32) 27 mmol/L (21-32) Anion Gap 12 (6-14) 9 (6-14) Blood Urea Nitrogen 15 mg/dL (7-20) 14 mg/dL (7-20) Creatinine 0.8 mg/dL (0.6-1.0) 0.8 mg/dL (0.6-1.0) Estimated GFR (Cockcroft-Gault) 79.0 79.0 Glucose Level 128 mg/dL (70-99) 103 mg/dL (70-99) Calcium Level 9.6 mg/dL (8.5-10.1) 9.5 mg/dL (8.5-10.1) Magnesium Level 1.8 mg/dL (1.8-2.4) Ethyl Alcohol Level < 10 mg/dL (0-10) Urine Collection Type Unknown Urine Color Estefanía Urine Clarity Clear Urine pH 6.5 Urine Specific [place] 1.025 Urine Protein Negative mg/dL (NEG-TRACE) Urine Glucose (UA) Negative mg/dL (NEG) Urine Ketones (Stick) 15 mg/dL (NEG) Urine Blood Negative (NEG) Urine Nitrite Negative (NEG) Urine Bilirubin Negative (NEG) Urine Urobilinogen Dipstick 1.0 mg/dL (0.2 mg/dL) Urine Leukocyte Esterase Small (NEG) Urine RBC 0 /HPF (0-2) Urine WBC 5-10 /HPF (0-4) Urine Squamous Epithelial Cells Mod /LPF Urine Amorphous Sediment Present /HPF Urine Bacteria Few /HPF (0-FEW) Urine Mucus Mod /LPF Urine Opiates Screen Neg (NEG) Urine Methadone Screen Neg (NEG) Urine Barbiturates Neg (NEG) Urine Phencyclidine Screen Neg (NEG) Urine Amphetamine/Methamphetamine Pos (NEG) Urine Benzodiazepines Screen Neg (NEG) Urine Cocaine Screen Neg (NEG) Urine Cannabinoids Screen Neg (NEG) Urine Ethyl Alcohol Pos (NEG) Total Bilirubin 0.5 mg/dL (0.2-1.0) Direct Bilirubin 0.2 mg/dL (0.0-0.2) Aspartate Amino Transf (AST/SGOT) 24 U/L (15-37) Alanine Aminotransferase (ALT/SGPT) 39 U/L (14-59) Alkaline Phosphatase 121 U/L (46-116) Total Protein 7.0 g/dL (6.4-8.2) Albumin 4.0 g/dL (3.4-5.0) Laboratory Tests Test 04/01/17 22:23 04/01/17 22:41 04/02/17 05:30 White Blood Count 7.9 x10^3/uL (4.0-11.0) 7.7 x10^3/uL (4.0-11.0) Red Blood Count 4.06 x10^6/uL (3.50-5.40) 4.04 x10^6/uL (3.50-5.40) Hemoglobin 13.6 g/dL (12.0-15.5) 13.5 g/dL (12.0-15.5) Hematocrit 38.9 % (36.0-47.0) 38.6 % (36.0-47.0) Mean Corpuscular Volume 96 fL (79-100) 96 fL (79-100) Mean Corpuscular Hemoglobin 34 pg (25-35) 33 pg (25-35) Mean Corpuscular Hemoglobin Concent 35 g/dL (31-37) 35 g/dL (31-37) Red Cell Distribution Width 12.9 % (11.5-14.5) 12.9 % (11.5-14.5) Platelet Count 261 x10^3/uL (140-400) 267 x10^3/uL (140-400) Neutrophils (%) (Auto) 59 % (31-73) 57 % (31-73) Lymphocytes (%) (Auto) 33 % (24-48) 33 % (24-48) Monocytes (%) (Auto) 7 % (0-9) 9 % (0-9) Eosinophils (%) (Auto) 1 % (0-3) 1 % (0-3) Basophils (%) (Auto) 1 % (0-3) 1 % (0-3) Neutrophils # (Auto) 4.6 x10^3uL (1.8-7.7) 4.4 x10^3uL (1.8-7.7) Lymphocytes # (Auto) 2.6 x10^3/uL (1.0-4.8) 2.5 x10^3/uL (1.0-4.8) Monocytes # (Auto) 0.6 x10^3/uL (0.0-1.1) 0.7 x10^3/uL (0.0-1.1) Eosinophils # (Auto) 0.1 x10^3/uL (0.0-0.7) 0.1 x10^3/uL (0.0-0.7) Basophils # (Auto) 0.1 x10^3/uL (0.0-0.2) 0.1 x10^3/uL (0.0-0.2) Sodium Level 143 mmol/L (136-145) 142 mmol/L (136-145) Potassium Level 2.4 mmol/L (3.5-5.1) 4.0 mmol/L (3.5-5.1) Chloride Level 103 mmol/L (98-107) 106 mmol/L (98-107) Carbon Dioxide Level 28 mmol/L (21-32) 27 mmol/L (21-32) Anion Gap 12 (6-14) 9 (6-14) Blood Urea Nitrogen 15 mg/dL (7-20) 14 mg/dL (7-20) Creatinine 0.8 mg/dL (0.6-1.0) 0.8 mg/dL (0.6-1.0) Estimated GFR (Cockcroft-Gault) 79.0 79.0 Glucose Level 128 mg/dL (70-99) 103 mg/dL (70-99) Calcium Level 9.6 mg/dL (8.5-10.1) 9.5 mg/dL (8.5-10.1) Magnesium Level 1.8 mg/dL (1.8-2.4) Ethyl Alcohol Level < 10 mg/dL (0-10) Urine Collection Type Unknown Urine Color Estefanía Urine Clarity Clear Urine pH 6.5 Urine Specific [place] 1.025 Urine Protein Negative mg/dL (NEG-TRACE) Urine Glucose (UA) Negative mg/dL (NEG) Urine Ketones (Stick) 15 mg/dL (NEG) Urine Blood Negative (NEG) Urine Nitrite Negative (NEG) Urine Bilirubin Negative (NEG) Urine Urobilinogen Dipstick 1.0 mg/dL (0.2 mg/dL) Urine Leukocyte Esterase Small (NEG) Urine RBC 0 /HPF (0-2) Urine WBC 5-10 /HPF (0-4) Urine Squamous Epithelial Cells Mod /LPF Urine Amorphous Sediment Present /HPF Urine Bacteria Few /HPF (0-FEW) Urine Mucus Mod /LPF Urine Opiates Screen Neg (NEG) Urine Methadone Screen Neg (NEG) Urine Barbiturates Neg (NEG) Urine Phencyclidine Screen Neg (NEG) Urine Amphetamine/Methamphetamine Pos (NEG) Urine Benzodiazepines Screen Neg (NEG) Urine Cocaine Screen Neg (NEG) Urine Cannabinoids Screen Neg (NEG) Urine Ethyl Alcohol Pos (NEG) Total Bilirubin 0.5 mg/dL (0.2-1.0) Direct Bilirubin 0.2 mg/dL (0.0-0.2) Aspartate Amino Transf (AST/SGOT) 24 U/L (15-37) Alanine Aminotransferase (ALT/SGPT) 39 U/L (14-59) Alkaline Phosphatase 121 U/L (46-116) Total Protein 7.0 g/dL (6.4-8.2) Albumin 4.0 g/dL (3.4-5.0) Medications Current Medications Potassium Chloride (KCl Oral Soln) 40 meq 1X ONCE PO Last administered on 04/01t 23:16; Start 04/01/17 at 23:30; Stop 04/01/17 at 23:31; Status DC Potassium Chloride/Dextrose/ Sod Cl 1,000 ml @ 75 mls/hr 1X ONCE IV ; Start at 23:30; Stop 04/02/17 at 12:49; Status Cancel Multivitamins 10 ml/Folic Acid 1 mg/Thiamine HCl 100 mg/Potassium Chloride 40 meq/ Dextrose/Sodium Chloride 1,031.2 ml @ 125 mls/ hr 1X ONCE IV Last administered on 04/01/17 23:34; Start 04/02/17 at 00:00; Stop 04/02/17 at 08:14 ; Status DC Ondansetron HCl (Zofran) 4 mg PRN Q8HRS PRN IV NAUSEA/VOMITING; Start 04/01/17 at 23:30; Stop 04/01/17 at 23:53; Status DC Acetaminophen (Tylenol) 650 mg PRN Q4HRS PRN PO FEVER; Start 04/01/17 at 23:30 ; Stop 04/02/17 at 23:29 Multivitamins 10 ml/Thiamine HCl 100 mg/Folic Acid 1 mg/Sodium Chloride 1,011.2 ml @ 100 mls/ hr DAILY IV Last administered on 04/02/17 08:48; Start at 09:00; Stop 04/07/17 at 08:59 Chlordiazepoxide (Librium) 25 mg Q6H PO Last administered on 04/02/17 12:23; Start 04/02/17 at 00:00; Stop 04/03/17 at 06:01 Ondansetron HCl (Zofran) 4 mg PRN Q6HRS PRN IV NAUSEA/VOMITING; Start 04/01/17 at 23:51 Potassium Chloride (Klor-Con) 40 meq 1X ONCE PO Last administered on 00:16; Start 04/02/17 at 00:15; Stop 04/02/17 at 00:16; Status DC Labetalol HCl (Normodyne) 10 mg PRN Q2HR PRN IVP 160/100; Start 04/02/17 at 00: 00 Pantoprazole Sodium (Protonix) 40 mg DAILYAC PO Last administered on 04/02/17 08:48; Start 04/02/17 at 07:30 Nicotine (Nicoderm Cq 21mg) 1 patch PRN DAILY PRN TD SMOKING CESSATION Last administered on 04/02/17 02:15; Start 04/02/17 at 00:00 Ibuprofen (Motrin) 400 mg PRN Q6HRS PRN PO INFLAMMATION; Start 04/02/17 at 01: 45 Paroxetine HCl (Paxil) 20 mg HS PO ; Start 04/02/17 at 21:00 Non-Formulary Medication 20 mg BID PO ; Start 04/02/17 at 09:00; Status UNV Pantoprazole Sodium (Protonix) 40 mg 1X ONCE PO Last administered on 02:08; Start 04/02/17 at 02:00; Stop 04/02/17 at 02:03; Status DC Pneumococcal Polyvalent Vaccine (Do NOT chart on this placeholder) 1 each 1X ONCE MC ; Start 04/02/17 at 02:45; Stop 04/02/17 at 02:46; Status UNV Pneumococcal Polyvalent Vaccine (Pneumovax 23) 0.5 ml ONCE ONCE VAX IM Last administered on 04/02/17 08:50; Start 04/02/17 at 09:00; Stop 04/02/17 at 09:01 ; Status DC Active Scripts Active Reported Ibuprofen 400 Mg Tablet 400 Mg PO PRN Q6HRS PRN Prilosec Otc (Omeprazole Magnesium) 20 Mg Tablet.dr 20 Mg PO BID Paxil (Paroxetine Hcl) 20 Mg Tablet 1 Tab PO HS Vitals/I & O Vital Sign - Last 24 Hours 04/01/17 04/01/17 04/01/17 04/01/17 22:08 22:45 23:17 23:17 Temp 97.5 97.5 Pulse 64 86 77 Resp 20 20 22 B/P (MAP) 126/66 (86) 207/110 (142) 214/78 (123) Pulse Ox 98 98 O2 Delivery Room Air Room Air Room Air 04/01/17 04/01/17 04/02/17 04/02/17 23:31 23:36 00:25 01:20 Pulse 80 80 Resp 22 18 B/P (MAP) 194/93 (126) 127/78 (94) Pulse Ox 100 98 O2 Delivery Room Air Room Air Room Air 04/02/17 04/02/17 04/02/17 04/02/17 01:20 03:35 07:27 08:00 Temp 97.8 96.3 97.8 96.3 Pulse 59 71 59 Resp 20 20 18 B/P (MAP) 126/73 (90) 109/60 (76) Pulse Ox 96 100 O2 Delivery Room Air Room Air Room Air 04/02/17 11:25 Temp 97.5 97.5 Pulse 79 Resp 18 B/P (MAP) 105/51 (69) Pulse Ox 96 O2 Delivery Room Air Intake and Output 04/01/17 04/01/17 04/02/17 15:00 23:00 07:00 Intake Total 360 ml Balance 360 ml CIERRA ARZATE III DO Apr 02, 2017 13:50
[2017-04-02 14:30] VITALS: BP 118/61
[2017-04-02] MEDS ORDERED: ALBUTEROL SULFATE 2.5 MG/3 ML NEBU. NEB PRN (17:30)
[2017-04-02 19:54] VITALS: BP 108/67
[2017-04-02] MEDS ORDERED: PARoxetine 20 MG TABLET PO SCH (21:00)
--- NOTE | 2017-04-03 11:22 | CONS ---
DATE OF CONSULTATION: 04/02/2017 REQUESTING PHYSICIAN: April Jimenez M.D. PRIMARY CARE PHYSICIAN: None. REASON FOR CONSULTATION: Diarrhea and rectal bleed. HISTORY OF PRESENT ILLNESS: This is a 41-year-old female who was at a [facility] and apparently had a syncopal episode. She reports a several-week history of diarrhea. Previously she had been having a bowel movement once a week and now it is 5-6 times a day. She also passes some bright red blood in her liquid stools. She has also had decreased p.o. intake in the last 1-1/2 weeks. She reports a similar episode in the past. She was told that it was from a parasite when she was at [employer]. Otherwise, she states she has a history of diverticulitis. PAST MEDICAL HISTORY: 1. Diverticulitis. 2. GERD. 3. IBS. 4. Peptic ulcer disease. 5. . 6. Tonsillectomy. 7. Hysterectomy. 8. . FAMILY MEDICAL HISTORY: She denies colorectal cancer. SOCIAL HISTORY: She drinks a pint of whiskey a day. She smokes a pack of cigarettes a day. She denies IV drug abuse. ALLERGIES: 1. PENICILLIN. 2. CODEINE. 3. DARVOCET. 4. DEMEROL. 5. ROCEPHIN. REVIEW OF SYSTEMS: A 13-point review of systems was done. It is positive as per HPI and otherwise negative. MEDICATIONS: 1. Paxil. 2. Protonix. 3. Motrin. 4. Nicoderm. 5. Labetalol. 6. Librium. 7. Zofran. 8. Tylenol. PHYSICAL EXAMINATION: VITAL SIGNS: Temperature is 97.5, blood pressure 105/51, heart rate 79. GENERAL: She is a well-developed, well-nourished female, in no apparent distress. HEENT: Oropharynx is clear. CARDIOVASCULAR: S1, S2. LUNGS: Clear. ABDOMEN: Normoactive bowel sounds, soft, nontender, nondistended. EXTREMITIES: No edema. NEUROLOGIC: Awake, alert and oriented x 3. LABORATORY DATA: CBC is unrevealing. Hemoglobin was 13.6 on admission, is 13.5 today. Chemistries initially showed a low potassium of 2.4, it is now a 4. LFTs with an elevated alkaline phosphatase at 121. ASSESSMENT AND PLAN: 1. Diarrhea. We will check stool studies. 2. Rectal bleed, unclear etiology, hemoglobin stable. 3. Nausea, elevated alkaline phosphatase go ahead and check an abdominal sonogram. Thank you for allowing me and Dr. Betancourt to participate in the care of this patient. SHARAD BETANCOURT MD DR: KEVIN/camila JOB#: [id number] / [id number]
== END 2017-04-02 21:20 | disposition left against medical advice (07) | DRG 641 ==
LOC: ER 22:08 → 5 NORTH 23:16
PROVIDERS: ADMIT Internal Medicine; ATTEND Internal Medicine
DX: E87.6 Hypokalemia (principal); K92.0 Hematemesis; I10 Essential (primary) hypertension; K21.9 Gastro-esophageal reflux disease without esophagitis; F32.9 Major depressive disorder, single episode, unspecified; F17.210 Nicotine dependence, cigarettes, uncomplicated; K74.60 Unspecified cirrhosis of liver; F03.90 Unspecified dementia, unspecified severity, without behavioral disturbance, psychotic disturbance, mood disturbance, and anxiety; Z53.21 Procedure and treatment not carried out due to patient leaving prior to being seen by health care provider; K58.0 Irritable bowel syndrome with diarrhea; R55 Syncope and collapse; Z87.11 Personal history of peptic ulcer disease; Z82.49 Family history of ischemic heart disease and other diseases of the circulatory system; Z90.710 Acquired absence of both cervix and uterus; Z88.0 Allergy status to penicillin; Z88.5 Allergy status to narcotic agent; Z88.8 Allergy status to other drugs, medicaments and biological substances; Z79.899 Other long term (current) drug therapy
CPT/HCPCS: 36415; 80048; 80076; 81001; 83735; 85027; 87324; 90732; 93005; 94250; 96365; 99406; G0480; G0481; J3480; J7030; 99285-25

== ENCOUNTER 2020-08-24 17:33 | Emergency (ER) | payer SELFPAY ==
[~2020-08-24] VITALS: Ht 163.8 cm; Wt 73.0 kg
[~2020-08-24 17:33] MED LIST: IBUP-1027 PO; OMEP20TA63 PO; PARO20TA99 PO
[2020-08-24] MEDS ORDERED: HYDROcodone/APAP 5/325MG 1 TAB TABLET PO ONE (18:30)
--- NOTE | 2020-08-24 18:35 | PHYS DOC ---
Past Medical History Past Medical History: Diverticulosis, Seizure Additional Past Medical Histor: H PYLORI, EARLY DEMENTIA, Past Surgical History: Hysterectomy, Tonsillectomy Additional Past Surgical Histo: FEMUR Smoking Status: Current Every Day Smoker Additional Information: 6-7 CIGARETTES DAILY Alcohol Use: Sober Additional Information: SOBER X 2-3 YEARS Drug Use: Methamphetamine General Adult EDM: Chief Complaint: RIB PAIN HPI: HPI: Patient is a 45 year old who presented to ER for evaluation of bilateral rib pain is worse on left side than the right side. Patient says she was walking downstairs and missed a step and fell down on concrete floor on her basement on 2 days ago, she landed on her upper back, having ribs pain since. She denies any mid back pain, no hip pain, no extremity pain. No head or neck injury. Patient denies taking any blood thinner. The pain is worse whenever she takes a deep breath or cough. Review of Systems: Review of Systems: Constitutional: Denies fever or chills. [] Eyes: Denies change in visual acuity. [] HENT: Denies nasal congestion or sore throat. [] Respiratory: Denies cough or shortness of breath. [] Cardiovascular: Positive for bilateral ribs pain GI: Denies abdominal pain, nausea, vomiting, bloody stools or diarrhea. [] : Denies dysuria. [] Musculoskeletal: Denies back pain or joint pain. [] Integument: Denies rash. [] Neurologic: Denies headache, focal weakness or sensory changes. [] Endocrine: Denies polyuria or polydipsia. [] Lymphatic: Denies swollen glands. [] Psychiatric: Denies depression or anxiety. [] Heart Score: Risk Factors: Risk Factors: DM, Current or recent (<one month) smoker, HTN, HLP, family history of CAD, obesity. Risk Scores: Score 0 - 3: 2.5% MACE over next 6 weeks - Discharge Home Score 4 - 6: 20.3% MACE over next 6 weeks - Admit for Clinical Observation Score 7 - 10: 72.7% MACE over next 6 weeks - Early Invasive Strategies Current Medications: Current Medications Medications (Trade) Dose Ordered Sig/Henrique Start Time Stop Time Status Last Admin Dose Admin Acetaminophen/ Hydrocodone Bitart (Lortab 5/325) 2 tab 1X ONCE 08/24/20 18:30 08/24/20 18:31 DC Allergies: Allergies: Allergies Coded Allergies Type Severity Reaction Last Updated Verified codeine Allergy Severe hives, quit breathing 08/24/20 Yes Penicillins Allergy Intermediate hives 08/24/20 Yes propoxyphene Allergy Intermediate hives 08/24/20 Yes ceftriaxone Adverse Reaction Severe hallucinations 08/24/20 Yes Physical Exam: PE: Constitutional: Well developed, well nourished, no acute distress, non-toxic aliya earance. [] HENT: Normocephalic, atraumatic, bilateral external ears normal, oropharynx moist, no oral exudates, nose normal. [] Eyes: PERRLA, EOMI, conjunctiva normal, no discharge. [] Neck: Normal range of motion, no tenderness, supple, no stridor. [] Cardiovascular:Heart rate regular rhythm, no murmur [] Lungs & Thorax: Bilateral breath sounds clear to auscultation. Bilateral posterior thoracic skin bruise, and tenderness to palpation, no crepitus, Abdomen: Bowel sounds normal, soft, no tenderness, no masses, no pulsatile masses. [] Skin: Warm, dry, no erythema, no rash. [] Back: No tenderness, no CVA tenderness. NO MIDLINE VERTEBRAL TENDERNESS TO PALPATION. Extremities: No tenderness, no cyanosis, no clubbing, ROM intact, no edema. [] Neurologic: Alert and oriented X 3, normal motor function, normal sensory function, no focal deficits noted. [] Psychologic: Affect normal, judgement normal, mood normal. [] Current Patient Data: Vital Signs: Vital Signs Date Time Temp Pulse Resp B/P (MAP) Pulse Ox O2 Delivery O2 Flow Rate FiO2 08/24/20 18:22 98.9 100 18 126/66 (86) 100 Room Air 98.9 EKG: EKG: [] Radiology/Procedures: Radiology/Procedures: [][facility] [address] [place] [address] IMAGING REPORT Signed PATIENT: ELENA STEVENSON DACCOUNT: [id number] : 1975 LOCATION: ER AGE: 45 SEX: F EXAM STATUS: REG ER ORD. PHYSICIAN: CRAWLEY,PETER T DO REASON: fall x2 days ago. left rib pain under breast, right upper rib pain PROCEDURE: RIBS BILAT & PA CXR 4+V PA chest and 4 oblique rib x-rays HISTORY: Fall 2 days ago with left rib pain. Right upper rib pain. FINDINGS: Heart size normal. These also is normal. No pneumothorax, pulmonary opacities or pleural effusions. There is an acute traumatic left lateral seventh rib nondisplaced fracture with minimal cortical offset. Remainder of the ribs are unremarkable. IMPRESSION: Acute traumatic nondisplaced left lateral seventh rib fracture. No acute cardiopulmonary process. Electronically signed by: Norman Mantilla MD (08/24/2020 7:17 PM) [facility] DICTATED and SIGNED BY: NORMAN MANTILLA MD DATE: 08/24/201916 Course & Med Decision Making: Course & Med Decision Making Pertinent Labs and Imaging studies reviewed. (See chart for details) [] Dragon Disclaimer: Dragon Disclaimer: This electronic medical record was generated, in whole or in part, using a voice recognition dictation system. Departure Departure Impression: Primary Impression: Left rib fracture Disposition: 01 DC HOME SELF CARE/HOMELESS Condition: STABLE Referrals: NO PCP (PCP) RETURN TO ER IF YOU HAVE SHORTNESS OF AIR. Patient Instructions: Rib Fracture Additional Instructions: Thank you for visiting our Emergency Department. We appreciate you trusting us with your care. If any additional problems come up don't hesitate to return to visit us. Please follow up with your primary care provider so they can plan additional care if needed and know about the problem that you had. If symptoms worsen come back to the Emergency Department. Any concerning symptoms that start such as chest pain, shortness of air, weakness or numbness on one side of the body, running high fevers or any other concerning symptoms return to the ER. Scripts Naproxen Sodium (ANAPROX DS) 550 Mg Tablet 1 TAB PO BID PRN for PAIN for 15 Days, #30 TAB 0 Refills Prov: ROMAN CRAWLEY DO 08/24/20 Hydrocodone/Apap 5-325 (NORCO 5-325 TABLET) 1 Each Tablet 1 TAB PO PRN Q6HRS PRN for PAIN, #15 TAB 0 Refills Prov: ROMAN CRAWLEY DO 08/24/20 ROMAN CRAWLEY DO Aug 24, 2020 18:35
--- NOTE | 2020-08-24 19:20 | RAD ---
PA chest and 4 oblique rib x-rays HISTORY: Fall 2 days ago with left rib pain. Right upper rib pain. FINDINGS: Heart size normal. These also is normal. No pneumothorax, pulmonary opacities or pleural effusions. There is an acute traumatic left lateral seventh rib nondisplaced fracture with minimal cortical offset. Remainder of the ribs are unremarkable. IMPRESSION: Acute traumatic nondisplaced left lateral seventh rib fracture. No acute cardiopulmonary process. Electronically signed by: Bakari Mantilla MD (08/24/2020 7:17 PM) [facility]
[2020-08-24 19:48] VITALS: BP 128/81
[2020-08-24] MEDS ORDERED: HYDR-3164 PO (19:52)
[2020-08-24] MEDS ORDERED: NAPR-682 PO (19:52)
== END 2020-08-24 20:26 | disposition home or self-care (01) ==
LOC: ER 17:33
DX: S22.32XA Fracture of one rib, left side, initial encounter for closed fracture (principal); F17.210 Nicotine dependence, cigarettes, uncomplicated; F19.90 Other psychoactive substance use, unspecified, uncomplicated; Z90.710 Acquired absence of both cervix and uterus; Z90.89 Acquired absence of other organs; Z88.5 Allergy status to narcotic agent; Z88.0 Allergy status to penicillin; Z88.8 Allergy status to other drugs, medicaments and biological substances; W10.8XXA Fall (on) (from) other stairs and steps, initial encounter; Y93.89 Activity, other specified; Y92.89 Other specified places as the place of occurrence of the external cause; Y99.8 Other external cause status
CPT/HCPCS: 71111; 99284

== ENCOUNTER 2020-09-08 17:06 | Emergency (ER) | payer SELFPAY ==
[~2020-09-08] VITALS: Ht 162.6 cm; Wt 71.0 kg
[~2020-09-08 17:06] MED LIST changes: +HYDR-3164 PO; +NAPR-682 PO
--- NOTE | 2020-09-08 17:56 | PHYS DOC ---
Past Medical History Past Medical History: Diverticulosis, Seizure Additional Past Medical Histor: H PYLORI, EARLY DEMENTIA, Past Surgical History: Hysterectomy, Tonsillectomy Additional Past Surgical Histo: FEMUR Smoking Status: Current Every Day Smoker Alcohol Use: Sober Drug Use: Methamphetamine General Adult EDM: Chief Complaint: FOOT INJURY PAIN HPI: HPI: Patient is a 45 year old female who presents with yesterday was moving a bed bath when it landed on her left foot. She states that she has elevated and iced it and use naproxen but is not helping. She states that she had hydrocodone but she is all out of them now. Patient rates her pain 9 out of 10. Patient has a history of diverticulosis, H. pylori, early dementia, hysterectomy, tonsillectomy, smoker. Review of Systems: Review of Systems: Constitutional: Denies fever or chills. [] Eyes: Denies change in visual acuity. [] HENT: Denies nasal congestion or sore throat. [] Respiratory: Denies cough or shortness of breath. [] Cardiovascular: Denies chest pain. + Left foot 3+ edema. [] GI: Denies abdominal pain, nausea, vomiting, bloody stools or diarrhea. [] : Denies dysuria. [] Musculoskeletal: Denies back pain or joint pain. + Left foot pain [] Integument: Denies rash. + Left foot bruising [] Neurologic: Denies headache, focal weakness or sensory changes. [] Endocrine: Denies polyuria or polydipsia. [] Lymphatic: Denies swollen glands. [] Psychiatric: Denies depression or anxiety. [] Heart Score: Risk Factors: Risk Factors: DM, Current or recent (<one month) smoker, HTN, HLP, family history of CAD, obesity. Risk Scores: Score 0 - 3: 2.5% MACE over next 6 weeks - Discharge Home Score 4 - 6: 20.3% MACE over next 6 weeks - Admit for Clinical Observation Score 7 - 10: 72.7% MACE over next 6 weeks - Early Invasive Strategies Current Medications: Current Medications Medications (Trade) Dose Ordered Sig/Henrique Start Time Stop Time Status Last Admin Dose Admin Acetaminophen/ Hydrocodone Bitart (Lortab 5/325) 1 tab 1X ONCE 09/08/20 18:00 09/08/20 18:01 Allergies: Allergies: Allergies Coded Allergies Type Severity Reaction Last Updated Verified codeine Allergy Severe hives, quit breathing 09/08/20 Yes Penicillins Allergy Intermediate hives 08/24/20 Yes propoxyphene Allergy Intermediate hives 08/24/20 Yes ceftriaxone Adverse Reaction Severe hallucinations 08/24/20 Yes Physical Exam: PE: Constitutional: Well developed, well nourished, no acute distress, non-toxic appearance. [] HENT: Normocephalic, atraumatic, bilateral external ears normal, oropharynx moist, no oral exudates, nose normal. [] Eyes: PERRLA, EOMI, conjunctiva normal, no discharge. [] Neck: Normal range of motion, no tenderness, supple, no stridor. [] Cardiovascular:Heart rate regular rhythm, no murmur [] Lungs & Thorax: Bilateral breath sounds clear to auscultation [] Abdomen: Bowel sounds normal, soft, no tenderness, no masses, no pulsatile masses. [] Skin: Warm, dry, no erythema, no rash. [] Back: No tenderness, no CVA tenderness. [] Extremities: Left anterior, medial, lateral tenderness, no cyanosis, no clubbing, left toes ROM not intact, left foot 3+ edema. [] Neurologic: Alert and oriented X 3, normal motor function, normal sensory function, no focal deficits noted. [] Psychologic: Affect normal, judgement normal, mood normal. [] EKG: EKG: [] Radiology/Procedures: Radiology/Procedures: [] Impression: [facility] [id number] [facility] [id number] IM[facility] REPORT Signed PATIENT: ELENA STEVENSON DACCOUNT: [id number] : 1975 LOCATION: ER AGE: 45 SEX: F EXAM STATUS: REG ER ORD. PHYSICIAN: PITER WARD APRN REASON: PAIN, SWELLING, BRUISING, DROPPED BIRD BATH ON FOOT PROCEDURE: FOOT LEFT 3V EXAM: Left foot, 3 views. HISTORY: Pain and swelling. Bruising. Blunt trauma. COMPARISON: None. FINDINGS: 3 views of the left foot are obtained. There is no fracture, dislocation or subluxation. IMPRESSION: No acute osseous finding. Electronically signed by: Idalia Lyn MD (09/08/2020 6:13 PM) [facility] DICTATED and SIGNED BY: IDALIA LYN MD DATE: 09/08/20 [id number] Course & Med Decision Making: Course & Med Decision Making Pertinent Labs and Imaging studies reviewed. (See chart for details) See HPI. Alert and oriented x4. Speaks in full complete sentences. Ambulatory with a limp on the left foot. Left foot is 3+ swollen with dorsal, lateral and medial foot diffuse bruising. Toes are not bruised. Patient can wiggle toes slightly. Full range of motion of her ankle. There is no tenderness to the ankle or the tib-fib. Tenderness to the whole left foot. Cap refills less than 2 seconds. Due to swelling pulse cannot be felt. Patient is given hydrocodone in the ED. Patient placed in a walking boot. Xray shows no acute findings. [] Dragon Disclaimer: Dragon Disclaimer: This electronic medical record was generated, in whole or in part, using a voice recognition dictation system. Departure Departure Impression: Primary Impression: Foot injury Qualified Codes: S99.922A - Unspecified injury of left foot, initial encoun ter Additional Impression: Contusion Qualified Codes: S90.32XA - Contusion of left foot, initial encounter Disposition: 01 DC HOME SELF CARE/HOMELESS Condition: STABLE Referrals: NO PCP (PCP) ANYI LITTLEJOHN MD Patient Instructions: Foot Contusion Additional Instructions: Follow-up with orthopedic soon as possible. Use ice and elevation. Take medication as prescribed. Scripts Tramadol Hcl (TRAMADOL HCL) 50 Mg Tablet 50 MG PO Q6HRS PRN for PAIN, #20 TAB Prov: PITER WARD APRN 09/08/20 PITER WARD APRN Sep 08, 2020 17:56
[2020-09-08] MEDS ORDERED: HYDROcodone/APAP 5/325MG 1 TAB TABLET PO ONE (18:00)
--- NOTE | 2020-09-08 18:15 | RAD ---
EXAM: Left foot, 3 views. HISTORY: Pain and swelling. Bruising. Blunt trauma. COMPARISON: None. FINDINGS: 3 views of the left foot are obtained. There is no fracture, dislocation or subluxation. IMPRESSION: No acute osseous finding. Electronically signed by: Idalia Puentes MD (09/08/2020 6:13 PM) [facility]
[2020-09-08] MEDS ORDERED: TRAM50TA PO (18:21)
[2020-09-08 20:15] VITALS: BP 114/57
== END 2020-09-08 20:21 | disposition home or self-care (01) ==
LOC: ER 17:06
DX: S90.32XA Contusion of left foot, initial encounter (principal); R60.0 Localized edema; Z88.5 Allergy status to narcotic agent; Z88.0 Allergy status to penicillin; Z88.8 Allergy status to other drugs, medicaments and biological substances; F17.200 Nicotine dependence, unspecified, uncomplicated; F19.90 Other psychoactive substance use, unspecified, uncomplicated; Z90.710 Acquired absence of both cervix and uterus; Z90.89 Acquired absence of other organs; X50.9XXA Other and unspecified overexertion or strenuous movements or postures, initial encounter; Y93.89 Activity, other specified; Y92.89 Other specified places as the place of occurrence of the external cause; Y99.8 Other external cause status
CPT/HCPCS: 73630; 99283